=== PATIENT | male | born 1970 | race Caucasian/White ===

== ENCOUNTER 2021-03-01 14:16 | Emergency (ER) | payer OTHER ==
--- NOTE | 2021-03-01 16:24 | ED Physician Documentation ---
History of Present Illness - Stated complaint Stated Complaint: CHEST TIGHTNESS, LIGHTHEADED, VISION PROBS, COUGH - Chief complaint Chief Complaint: General - Additonal information Additional information: 50-year-old male presents the emergency department for evaluation of persistent cough. He reports that on 10 February he was diagnosed with bronchitis and was started on a Z-Aj as well as a burst of prednisone. However he failed to impro ve therefore he saw his security systems specialist at the [facility] who instituted a long steroid taper and put him on cefuroxime. He does not feel that the cough is better but he also does not feel that it is improving or worsening. This gentleman is medically complicated given a history of HIV infection. However he reports a CD4 count typically greater than 800 as well as an undetectable viral load. He states that 3 days ago he began to resume his omeprazole thinking that silent GERD could be affecting the cough. And it has in fact improved his cough. He also reports feeling brain foggy and off balance. He does have a history of ADHD as well as bipolar disorder. Review of Systems Constitutional: reports: Fever Ears: reports: Reviewed and negative Nose: denies: Rhinorrhea / runny nose, Congestion Throat: reports: Other (dry mouth) Cardiac: denies: Chest pain / pressure, Palpitations Respiratory: reports: Dyspnea, Cough GI: denies: Abdominal Pain, Abdominal Swelling : denies: Dysuria, Frequency Skin: denies: Rash, Lesions Musculoskeletal: denies: Neck pain, Back pain Neurologic: denies: Generalized weakness, Focal weakness, Numbness, Syncope, Seizure, Headache Psychiatric: denies: Depressed, Suicidal PD PAST MEDICAL HISTORY - Past Medical History Cardiovascular: Arrhythmia Respiratory: None Neuro: Migraines Endocrine/Autoimmune: None Psych: Other Other Past Medical History: HIV. 3 degree heart block. ADHD - Past Surgical History Past Surgical History: No - Present Medications Home Medications: Ambulatory Orders Medication Instructions Recorded Confirmed Cevimeline HCl [Evoxac] 30 mg PO BID 08/07/16 03/01/21 Eszopiclone [Lunesta] 3 mg PO DAILY PM 08/07/16 03/01/21 Isomethept/Dichlphn/Acetaminop 1 each PO PRN PRN 08/07/16 03/01/21 [Kdyqithsnm-Lkcqipigif-Laqntqoq] Magnesium Oxide [Magnesium] 400 mg PO DAILY 08/07/16 03/01/21 Quetiapine Fumarate [Seroquel] 50 mg PO PRN PRN 08/07/16 03/01/21 Tesamorelin Acetate [Egrifta] 2 mg SQ DAILY 08/07/16 03/01/21 Topiramate [Topamax] 150 mg PO BID 08/07/16 03/01/21 lamoTRIgine [Lamictal] 200 mg PO DAILY 08/07/16 03/01/21 Albuterol 2.5 mg PO BID 03/01/21 03/01/21 Albuterol Sulf [Ventolin Hfa 1 puffs PO Q4HR 03/01/21 03/01/21 Inhaler] Bictegrav/Emtricit/Tenofov Ala 1 tab PO DAILY 03/01/21 03/01/21 [Biktarvy 50-200-25 mg Tablet] Budesonide [Pulmicort] 0.5 mg PO BID PRN 03/01/21 03/01/21 Fluticasone 44 Mcg [Flovent] 2 puffs PO BID 03/01/21 03/01/21 Ipratropium [Atrovent] 1 puffs INH Q6H 03/01/21 03/01/21 Methylphenidate HCl [Concerta] 1 tab PO DAILY 03/01/21 03/01/21 Methylphenidate HCl 1 tab PO BID 03/01/21 03/01/21 [Methylphenidate ER] Omeprazole Magnesium 20 mg PO BID 03/01/21 03/01/21 QUEtiapine [SEROquel] 200 mg PO QPM 03/01/21 03/01/21 Testosterone Cypionate 40 mg IM ONCE 03/01/21 03/01/21 [Depo-Testosterone] Ubrogepant [Ubrelvy] 100 mg PO PRN PRN 03/01/21 03/01/21 lamoTRIgine [Lamictal] 1 tab PO BID 03/01/21 03/01/21 - Allergies Allergies/Adverse Reactions: Allergies Allergy/AdvReac Type Severity Reaction Status Date / Time propranolol [From Inderal LA] Allergy Anaphylaxis Verified 03/01/21 14:22 verapamil Allergy Anaphylaxis Verified 03/01/21 14:22 - Social History Does the pt smoke?: No Smoking Status: Never smoker Does the pt drink ETOH?: No Does the pt have substance abuse?: No - Immunizations Immunizations are current?: Yes - POLST Patient has POLST: No PD ED PE NORMAL - General General: Alert and oriented X 3, No acute distress, Well developed/nourished - HEENT HEENT: Atraumatic, EOMI, Ears normal, Moist mucous membranes, Other (posterior OP erythema) - Neck Neck: Supple, no meningeal sign, No adenopathy - Cardiac Cardiac: RRR, No murmur - Respiratory Respiratory: No respiratory distress, Clear bilaterally - Abdomen Abdomen: Normal bowel sounds, Soft - Male Male : Deferred - Back Back: No CVA TTP - Derm Derm: Normal color, No rash Results - Vitals Vitals: Vital Signs - 24 hr 03/01/21 03/01/21 14:22 16:15 Temperature 36.6 C Heart Rate 118 H 112 H Respiratory 16 18 Rate Blood Pressure 160/110 H 160/133 H O2 Saturation 100 99 Oxygen O2 Source Room air - EKG (time done) 1428 Rate: Rate (enter#) (118) Rhythm: Sinus tachycardia Delton: Normal Intervals: Normal ND QRS: Normal Ischemia: Normal ST segments Compare to prior EKG: Changed from prior EKG Computer interpretation: Agree with computer - Labs Labs: Laboratory Tests 03/01/21 03/01/21 03/01/21 16:38 16:38 16:38 WBC 8.6 RBC 5.30 Hgb 16.7 Hct 48.7 MCV 91.9 MCH 31.5 H MCHC 34.3 RDW 12.8 Plt Count 211 MPV 8.7 Neut # (Auto) 7.5 H Lymph # (Auto) 0.8 L [place] # (Auto) 0.2 Eos # (Auto) 0.0 Baso # (Auto) 0.0 Absolute Nucleated RBC 0.00 Nucleated RBC % 0.0 Sodium 138 Potassium 4.0 Chloride 106 Carbon Dioxide 23 Anion Gap 9.0 BUN 18 Creatinine 1.0 Estimated GFR (MDRD) 79 L Glucose 134 H Calcium 9.6 B-Natriuretic Peptide 13 - Rads (name of study) CXR Radiology: Final report received (No acute cardiopulmonary process.) PD MEDICAL DECISION MAKING - ED course Complexity details: reviewed results, re-evaluated patient, d/w patient ED course: 50-year-old male presents the emergency department for evaluation of persistent cough since February 10 as well as feeling fuzzy and lightheaded. He is currently previous bribed a long prednisone taper as well as cefuroxime by his security systems specialist for bronchiectasis. He has no fevers but his cough is worse at night especially when laying flat. He did resume taking omeprazole a few days ago and feels that it is helped improve the cough. But he is very worried about feeling fuzzy and lightheaded and feels at only 80% of himself. Screening labs today showed no significant abnormalities. Patient's vital signs here in the emergency department are unremarkable sparing mild tachycardia. Chest x-ray does not show any focal pneumonia, pleural effusion or enlarged heart. His BNP was normal. At this time I suspect the majority of his symptoms may be related to a long prednisone taper especially the fuzzy lightheaded feeling. I would not make a change to the taper or the antibiotics as they are being prescribed through his security systems specialist. I do recommend that he consider Flonase to help with postnasal drip and continue the omeprazole a silent acid reflux may be contributing to his symptoms. He may benefit from referral to a crm consultant. Emergent return precautions were discussed. Departure - Departure Disposition: 01 Home, Self Care Clinical Impression: Cough, On prednisone therapy Bronchiectasis Qualifiers: Bronchiectasis type: with acute exacerbation Qualified Code(s): J47.1 - Bronchiectasis with (acute) exacerbation Condition: Stable Record reviewed to determine appropriate education?: Yes Comments: Arnaldo ross were seen in the emergency department today for visual changes, feeling of being lightheaded, fuzzy as well as a persistent cough. 1. Please complete the full course of antibiotics as well as your prednisone taper. 2. Continue to do the albuterol and budesonide nebulizers as you are currently doing them. 3. Continue the omeprazole as it seems to be improving your cough. There is a possibility you have silent acid reflux at night that is contributing to the symptoms. Please discuss this with your primary care doctor. A referral to a crm consultant for an EGD may be warranted. Your screening EKG chest x-ray and labs were all without worrisome abnormality. Bronchiectasis can take a number of weeks to improve. I would continue the Tessalon Perls that you are already taking. If you find relief using [id number] agents such as guaifenesin or Mucinex you may attempt those as well. Return to the emergency department for fevers higher than 102, sudden shortness of breath, uncontrolled chest pain abdominal pain or vomiting.
[2021-03-01 16:43] LABS: BASOPHILS % (AUTO) 0.1 %; HCT - HEMATOCRIT 48.7 % (42.0-52.0); HGB - HEMOGLOBIN 16.7 g/dL (14.0-18.0); LYMPHOCYTES # (AUTO) 0.8 10^3/uL (1.5-3.5); LYMPHOCYTES % (AUTO) 8.9 %; MEAN CORPUSCULAR HEMOGLOBIN 31.5 pg (27.0-31.0); MEAN CORPUSCULAR HGB CONC 34.3 g/dL (32.0-36.0); MEAN CORPUSCULAR VOLUME 91.9 fL (80.0-94.0); MEAN PLATELET VOLUME 8.7 fL (7.4-11.4); MONOCYTES # (AUTO) 0.2 10^3/uL (0.0-1.0); MONOCYTES % (AUTO) 2.8 %; NEUTROPHILS # (AUTO) 7.5 10^3/uL (1.5-6.6); NEUTROPHILS % (AUTO) 87.3 %; PLT - PLATELET COUNT 211 10^3/uL (130-450); RED CELL DISTRIBUTION WIDTH 12.8 % (12.0-15.0); WHITE BLOOD COUNT 8.6 x10^3/uL (4.8-10.8)
[2021-03-01 16:54] LABS: CALCIUM 9.6 mg/dL (8.5-10.3)
--- NOTE | 2021-03-01 16:54 | XRAY Report ---
PROCEDURE: Chest 1 View X-Ray INDICATIONS: chest pain TECHNIQUE: One view of the chest was acquired. COMPARISON: None FINDINGS: Surgical changes and devices: None. Lungs and pleura: No pleural effusions or pneumothorax. Lungs are clear. Mediastinum: Mediastinal contours appear normal. Heart size is normal. Bones and chest wall: No suspicious bony lesions. Overlying soft tissues appear unremarkable. IMPRESSION: No acute pulmonary process. Reviewed by: Jeny Valera MD on 03/01/2021 4:53 PM PDT Approved by: Jeny Valera MD on 03/01/2021 4:53 PM PDT Station ID: [id number]
[2021-03-01 17:56] VITALS: BP 152/100
== END 2021-03-01 17:48 | disposition home or self-care (01) ==
LOC: ED 14:16
DX: J47.1 Bronchiectasis with (acute) exacerbation (principal); B20 Human immunodeficiency virus [HIV] disease; F90.9 Attention-deficit hyperactivity disorder, unspecified type; F31.9 Bipolar disorder, unspecified; I44.2 Atrioventricular block, complete; Z79.52 Long term (current) use of systemic steroids; Z79.899 Other long term (current) drug therapy
CPT/HCPCS: 36415; 80048; 83880; 85025; 93005; 99283; 99284

== ENCOUNTER 2021-06-22 16:25 | Outpatient (CLI) | payer OTHER | END 2021-06-22 16:26 | disposition home or self-care (01) | LOC: COV 16:25 | PROVIDERS: ATTEND Nurse Practitioner | DX: Z01.812 Encounter for preprocedural laboratory examination (principal); R05 Cough; R12 Heartburn; R10.84 Generalized abdominal pain; Z87.11 Personal history of peptic ulcer disease; Z20.822 Contact with and (suspected) exposure to COVID-19 ==